=== PATIENT | male | born 1965 | race Two or more races ===

== ENCOUNTER 2016-09-19 17:40 | Emergency (ER) | payer OTHER ==
[~2016-09-19] VITALS: Ht 172.7 cm; Wt 85.0 kg
[2016-09-19 17:42] VITALS: BP 156/87
[2016-09-19] MEDS ORDERED: FISH OIL 1,001000 M2 PO (17:45)
== END 2016-09-19 18:21 | disposition home or self-care (01) ==
LOC: EME 17:40
PROC: 3E0234Z Introduction of Serum, Toxoid and Vaccine into Muscle, Percutaneous Approach (ICD-10-PCS; principal; 2016-09-19)
DX: S61.031A Puncture wound without foreign body of right thumb without damage to nail, initial encounter (principal); W46.1XXA Contact with contaminated hypodermic needle, initial encounter; Y92.239 Unspecified place in hospital as the place of occurrence of the external cause; Y99.0 Civilian activity done for income or pay
CPT/HCPCS: 80048; 80076; 85025; 86703; 86706; 86803; 99281; 99284